=== PATIENT | female | born 1975 | race Caucasian/White ===

== ENCOUNTER → 2016-04-01 | Outpatient (REF) | payer OTHER ==
[2016-04-01 15:33] LABS: ANION GAP 9 MEQ/L (8-16); BLOOD UREA NITROGEN 13 MG/DL (7-18); CARBON DIOXIDE LEVEL 28 MEQ/L (21-32); CHLORIDE LEVEL 106 MEQ/L (98-107); CREATININE FOR GFR 0.84 MG/DL (0.55-1.02); GLOMERULAR FILTRATION RATE > 60.0 (>58); GLUCOSE, FASTING 85 MG/DL (70-105); POTASSIUM SERUM 4.5 MEQ/L (3.5-5.1); SODIUM LEVEL 143 MEQ/L (136-145)
[2016-04-01 15:34] LABS: ALBUMIN 4.1 GM/DL (3.2-5.2); ALBUMIN/GLOBULIN RATIO 1.41 (1.00-1.93); ALKALINE PHOSPHATASE 72 U/L (45-117); ALT/SGPT 13 U/L (12-78); AST/SGOT 9 U/L (15-37); BILIRUBIN,TOTAL 0.3 MG/DL (0.2-1.0); CALCIUM LEVEL 8.8 MG/DL (8.5-10.1)
== END ==
LOC: M SFHCLACO 12:06
PROVIDERS: ATTEND Physician Assistant
DX: E03.9 Hypothyroidism, unspecified (principal)

== ENCOUNTER 2016-10-07 14:24 | Inpatient (IN) | payer MEDICAID, OTHER ==
[~2016-10-07] VITALS: Ht 152.4 cm; Wt 55.3 kg
[2016-10-07] MEDS ORDERED: HALOPERIDOL 5 MG/ML VIAL (J1630) IM STA (14:40)
[2016-10-07] MEDS ORDERED: LORazepam 2 MG/ML VIAL (J2060) IM STA (14:40)
[2016-10-07] MEDS ORDERED: LAMO150T PO (14:43)
[2016-10-07] MEDS ORDERED: LEVO88TA3 PO (14:43)
[2016-10-07] MEDS ORDERED: GABA-282 PO (14:43)
[2016-10-07] MEDS ORDERED: DULO1CAP3 PO (14:43)
[2016-10-07] MEDS ORDERED: DULO1CAP2 PO ×2 (14:43→21:27)
[2016-10-07 15:15] LABS: MEAN CORPUSCULAR HEMOGLOBIN 25.8 pg (27.0-33.0); MEAN CORPUSCULAR HGB CONC 32.4 g/dl (32.0-36.5); MEAN CORPUSCULAR VOLUME 79.5 fl (80.0-96.0); RED CELL DISTRIBUTION WIDTH 14.5 % (11.5-14.5); WHITE BLOOD COUNT 13.1 K/mm3 (4.0-10.0)
[2016-10-07 15:46] LABS: ALBUMIN 4.3 GM/DL (3.2-5.2); ALBUMIN/GLOBULIN RATIO 1.34 (1.00-1.93); ALKALINE PHOSPHATASE 60 U/L (45-117); ALT/SGPT 14 U/L (12-78); ANION GAP 12 MEQ/L (8-16); AST/SGOT 11 U/L (15-37); BILIRUBIN,DIRECT 0.1 MG/DL (0.0-0.2); BILIRUBIN,TOTAL 0.5 MG/DL (0.2-1.0); BLOOD UREA NITROGEN 11 MG/DL (7-18); CALCIUM LEVEL 9.3 MG/DL (8.5-10.1); CARBON DIOXIDE LEVEL 21 MEQ/L (21-32); CHLORIDE LEVEL 104 MEQ/L (98-107); CREATININE FOR GFR 1.02 MG/DL (0.55-1.02); GLOMERULAR FILTRATION RATE > 60.0 (>58); GLUCOSE, FASTING 84 MG/DL (70-105); POTASSIUM SERUM 4.2 MEQ/L (3.5-5.1); SODIUM LEVEL 137 MEQ/L (136-145); TOTAL PROTEIN 7.5 GM/DL (6.4-8.2)
--- NOTE | 2016-10-07 17:54 | REP ---
CT BRAIN WITHOUT IV CONTRAST: CT brain is performed without IV contrast. Ventricles are normal in size and position. There is no midline shift. Bautista/white differentiation is well maintained. There is no acute hemorrhage. There is no extra-axial fluid collection. Bone window examination is unremarkable. IMPRESSION: Negative noncontrast CT brain. Signed by Chris Bautista MD 10/07/2016 07:29 P
--- NOTE | 2016-10-07 19:40 | ECGEPIP ---
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
[2016-10-07] MEDS ORDERED: MOM 30ML SUSPENSION UDC PO PRN (21:00)
[2016-10-07] MEDS ORDERED: traZODone 50 MG TAB PO PRN (21:00)
[2016-10-07] MEDS ORDERED: MAALOX 30 ML SUSP *UDC PO PRN (21:00)
[2016-10-07] MEDS ORDERED: BENA25TA10 PO (21:27)
[2016-10-07] MEDS ORDERED: IBUP40TA PO (21:27)
[2016-10-07] MEDS ORDERED: BUPR150T5 PO (21:29)
[2016-10-07] MEDS ORDERED: BUPR300T34 PO (21:29)
[2016-10-07 21:32] LABS: METHADONE URINE NEGATIVE (NEGATIVE)
[2016-10-08 01:00] VITALS: BP 107/70
[2016-10-08] MEDS ORDERED: GABAPENTIN 300 MG CAP PO PRN (02:45)
[2016-10-08] MEDS: LEVOTHYROXINE 88MCG TABLET (0.088 MG) PO SCH (07:08)
[2016-10-08] MEDS ORDERED: buPROPion **XL** TABLET 150MG (WELLBUTRIN XL) PO SCH (09:00)
[2016-10-08] MEDS: DULoxetine 30 MG CAP (CYMBALTA) PO SCH (09:56)
[2016-10-08] MEDS: buPROPion **XL** TABLET 150MG (WELLBUTRIN XL) PO SCH (09:56)
[2016-10-08] MEDS: lamoTRIgine 100MG TAB PO SCH (09:56)
--- NOTE | 2016-10-08 10:28 | HPEPDOC ---
Medical History and Physical Date of Admission Oct 07, 2016 at 20:51 History and Physical PCP: Sophia SERRATO ATTENDING: Dr. Alphonso Roa HPI: 40 yo F admitted to [facility] for brief psychotic disorder, being medically examined today. No acute medical complaints today. Patient states she takes gabapentin for panic attacks. She takes Lamictal for anxiety. Denies any fevers , chills, weakness, fatigue, MARSHALL, CP, SOB, cough, palpitations, abdominal pain, N /V/D or changes in bowel or bladder habits. PMHx: Panic attacks Anxiety Depression Hypothyroidism Headache PSHX: Denies SOCHX: Resides in: [facility] Marital Status: Kids: 3 Employment: Unemployed Tobacco use: Denies ETOH: One to 2 per week Illicit Drugs: Denies IV Drug Use: Denies Tattoos done unprofessionally: Denies FAMHX: Mother: , HIV Father: Alive, well Siblings: Alive, well Children: Alive, well Unexpected deaths due to medical reasons: None. ROS: As noted in HPI, otherwise 11pt ROS of systems reviewed and remarkable only for LMP unknown PE: GEN: 40 yo F, appears stated age. Well-nourished, well developed. No acute distress. Alert and oriented x 3. Pleasant, interactive. HEENT: Normocephalic, atraumatic. Pupils are equal, round, and reactive to light. Extraocular movements are intact. No nystagmus appreciated. Sclera are nonicteric. Conjunctiva without injection. Nose midline. Nasal turbinates without bogginess. EACs both patent BL. TMs both visualized and tay with good cone of light, no bulging or erythema. No facial asymmetry. Moist mucous membranes. Dentition fair. Pharynx pink and moist, no cobblestoning. Neck supple , trachea midline. No lymphadenopathy or thyromegaly appreciated. CHEST: Regular rate and rhythm, +S1, +S2 LUNGS: Clear to auscultation bilaterally. No wheezes, rales, or rhonchi. Breathing appears symmetric and easy. Patient is speaking in full sentences. No accessory muscle use. ABD: Round, soft, non-tender, non-distended. +Bowel sounds throughout. No rebound or guarding. No costovertebral angle tenderness. EXT: Pulses 2+ bilaterally dorsalis pedis and radial. No lower extremity edema appreciated. SKIN: [place], dry, warm. Capillary refill <2sec. No rashes. NEURO: Alert and oriented x 3. Cranial nerves III-XII are intact. No focal deficits appreciated. EK10/07/16 SINUS TACHYCARDIA NONSPECIFIC T-WAVE ABNORMALITY NO PRIORS CT had 10/07/[address] brain A&P: 40 yo F admitted to [facility] for brief psychotic disorder 1. Psych. Plan per Psychiatry. EKG on file. CT brain on file. Check UA/urine culture. 2. Hypothyroidism. Continue Synthroid 88 g daily. TSH is noted within normal limits. 3. Leukocytosis. Patient is afebrile. Asymptomatic. Recheck CBC in a.m. 4. Follow up with PCP on discharge. 5. Melvi HERNANDEZ present throughout exam. Vital Signs Vital Signs Date Time Temp Pulse Resp B/P (MAP) Pulse Ox O2 Delivery O2 Flow Rate FiO2 10/08/16 01:00 99.0 90 20 107/70 (82) 98 Room Air Laboratory Data Labs 24H Laboratory Tests 2 10/07/16 14:56: Anion Gap 12, Glomerular Filtration Rate > 60.0, Calcium Level 9.3, Aspartate Amino Transf (AST/SGOT) 11L, Alanine Aminotransferase (ALT/SGPT) 14, Alkaline Phosphatase 60, Total Bilirubin 0.5, Direct Bilirubin 0.1, Total Protein 7.5, Albumin 4.3, Albumin/Globulin Ratio 1.34, Thyroid Stimulating Hormone (TSH) 1.930, Salicylates Level < 1.7L, Acetaminophen Level < 2.0L, Ethyl Alcohol Level < 0.003 10/07/16 14:57: 10/07/16 20:33: Urine Amphetamines Screen NEGATIVE, Urine Benzodiazepines Screen NEGATIVE, Urine Opiates Screen NEGATIVE, Urine Methadone Screen NEGATIVE, Urine Barbiturates Screen NEGATIVE, Urine Phencyclidine Screen NEGATIVE, Urine Cocaine Metabolite Screen NEGATIVE, Urine Cannabinoids Screen NEGATIVE CBC/BMP Laboratory Tests 10/07/16 14:56 10/07/16 14:57 Red Blood Count 4.80, Mean Corpuscular Volume 79.5 L, Mean Corpuscular Hemoglobin 25.8 L, Mean Corpuscular Hemoglobin Concent 32.4, Red Cell Distribution Width 14.5 Home Medications Scheduled Bupropion HCl (Bupropion HCl Xl) 300 Mg Tab, 300 MG PO DAILY TAKES WITH THE 150 MG SR FOR 450 MG TOTAL Bupropion Hcl (Bupropion HCl Sr) 150 Mg Tab, 150 MG PO DAILY TAKES WITH THE 300 MG XL FOR 450 MG TOTAL Duloxetine Hcl (Duloxetine HCl) 60 Mg Cap, 60 MG PO DAILY TAKES WITH 30 MG FOR 90 MG TOTAL Duloxetine Hcl (Duloxetine HCl) 30 Mg Cap, 30 MG PO DAILY TAKES WITH 60 MG FOR 90MG TOTAL Lamotrigine (Lamotrigine) 150 Mg Tab, 150 MG PO DAILY Levothyroxine Sodium (Synthroid) 88 Mcg Tab, 88 MCG PO DAILY Scheduled PRN Diphenhydramine Hcl (Benadryl Allergy) 25 Mg Tab, 25 MG PO QHS PRN for SLEEP Gabapentin (Gabapentin) 300 Mg Cap, 300 MG PO TID PRN for PANIC ATTACKS Ibuprofen (Ibuprofen) 400 Mg Tab, 400 MG PO Q6H PRN for PAIN Allergies Coded Allergies: Penicillins (Unverified Allergy, Intermediate, RASH, 10/07/16) Elena Karimi Oct 08, 2016 10:28
[2016-10-08 18:00] VITALS: BP 132/76
--- NOTE | 2016-10-09 04:28 | MHHPE ---
DATE OF ADMISSION: 10/07/2016 CURRENT MEDICATIONS: - Wellbutrin XL 450 mg every morning - Cymbalta 90 mg every morning - Lamictal 150 mg every morning - gabapentin 300 mg three times a day as needed CHIEF COMPLAINT: Feeling overwhelmed. HISTORY OF PRESENT ILLNESS: This is a 40-year-old white female, , living with her and three children. Patient reports feeling confused today. Patient was at a local department store and panicked when she could not get a hold of her daughter. She reports having an "out of body experience." She has been feeling stressed recently. All three of her children are home from school. They fight constantly. Her 11-year-old son has autism. She does have a history of depression. Her appetite has been poor recently. She blames this on having a vegan diet. Recently, she switched to a vegetarian diet and her appetite has improved somewhat. Patient sleeps only with Benadryl. Her concentration is fine. Her level of energy is good. She enjoys spending time with her family. She does have a history of panic attacks. Her chest hurts. She has shortness of breath. She feels sweaty. She reports pins and needles in her hands. She is also a big worrier. She cannot relax. No history of obsessive-compulsive disorder (OCD) or posttraumatic stress disorder (PTSD). She does not avoid crowded situations. Patient has been on this high dose of Wellbutrin for at least 2 years now. She was getting her medications from a psychiatrist in [place] who stopped taking her insurance. Now she is getting her medications from her primary care physician. Patient still sees her therapist in [place], however. She has been seeing her therapist for approximately 5 years now. She claims to have a diagnosis of major depression and borderline personality disorder. PAST PSYCHIATRIC HISTORY: Patient states she has history of depression back to childhood when her mother abandoned the family when the patient was in fourth grade. She never got any treatment up until about 5 years ago. She was hospitalized briefly in ninth grade for 4 or 5 days, which she claims was a misunderstanding. MEDICAL HISTORY: She has hypothyroidism. SURGICAL HISTORY: None. ALLERGIES: PENICILLIN. LEGAL HISTORY: Negative. SUBSTANCE USE DISORDER: Patient denies. SOCIAL HISTORY: Patient was born and raised in [place]. Her mother was a heroin addict and abandoned the family. Patient was raised by her grandparents who eventually moved down to [place] when the patient was in tenth grade. Patient has 2 years of college. 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 She moved up to [place] in 2005 with her . FAMILY PSYCHIATRIC HISTORY: Patient's mother was a heroin addict. MENTAL STATUS EXAMINATION: Patient is alert, oriented and cooperative. She is highly anxious and mildly depressed. She is not currently suicidal. No current signs of psychosis. Not hearing voices. No paranoia or thought disorder. Patient fully oriented. Memory functions appear intact. Grooming and hygiene appear good. DIAGNOSES: 1. Major depression, recurrent, mild severity. 2. Panic anxiety disorder. 3. Generalized anxiety disorder. 4. Borderline personality disorder by history. PLAN: Admit 9.39. Reduce dose of Wellbutrin, which may be contributing to her anxiety symptoms and confusion. Involve in hospital milieu. Staff to reach out to family members for collateral contact.
[2016-10-09] MEDS: LEVOTHYROXINE 88MCG TABLET (0.088 MG) PO SCH (06:09)
[2016-10-09 06:25] VITALS: BP 92/58
[2016-10-09] MEDS: buPROPion **XL** TABLET 150MG (WELLBUTRIN XL) PO SCH (08:28)
[2016-10-09] MEDS: lamoTRIgine 100MG TAB PO SCH (08:28)
[2016-10-09] MEDS: DULoxetine 30 MG CAP (CYMBALTA) PO SCH (08:29)
--- NOTE | 2016-10-09 16:19 | IPN ---
DATE: 10/09/2016 VITAL SIGNS: Temperature is 98.9, pulse 89, respirations 20, blood pressure 92/58. CURRENT MEDICATIONS: - Cymbalta 90 mg daily - Lamictal 150 mg daily - Wellbutrin XL 150 mg every morning HISTORY OF PRESENT ILLNESS: The patient felt tearful today after her sister called from [place]. She still reports some mild depression and mild anxiety. No suicidal thoughts however. No episodes of mental confusion or panic attacks. No out of body experiences. She sleep better last night. Reducing the Wellbutrin seemed to reduce her anxiety level. Her came in to visit last night. This went well. She denies current psychotic symptoms. She has no other complaints. MENTAL STATUS EXAMINATION: The patient is alert, oriented and cooperative. She has good eye contact. Anxiety is mild. Depression is mild. She is not suicidal. She is not psychotic. Insight and judgment appears reasonably good. No signs of dangerousness. DIAGNOSIS: 1. Major depression recurrent, mild severity. 2. Panic anxiety disorder. 3. Generalized anxiety disorder. 4. Borderline personality disorder by history. PLAN: Continue current management involved in hospital Milieu. DISCHARGE PLAN: Contact family on Tuesday
[2016-10-09 18:00] VITALS: BP 101/60
[2016-10-10] MEDS: LEVOTHYROXINE 88MCG TABLET (0.088 MG) PO SCH (06:03)
[2016-10-10 06:16] VITALS: BP 102/53
[2016-10-10] MEDS: buPROPion **XL** TABLET 150MG (WELLBUTRIN XL) PO SCH (08:19)
[2016-10-10] MEDS: lamoTRIgine 100MG TAB PO SCH (08:19)
[2016-10-10] MEDS: DULoxetine 30 MG CAP (CYMBALTA) PO SCH (08:19)
[2016-10-10] MEDS: ACETAMINOPHEN TAB 650MG DOSE (2X325MG) PO PRN ×2 (15:17→21:22)
[2016-10-10 18:00] VITALS: BP 100/56
--- NOTE | 2016-10-10 21:36 | IPN ---
DATE: 10/10/2016 VITAL SIGNS: Temperature 98.0, pulse 84, respirations 18, blood pressure 102/53. CURRENT MEDICATION: - Cymbalta 90 mg per day - Lamictal 150 mg in the morning - Wellbutrin XL 150 mg in the morning HISTORY OF PRESENT ILLNESS: The patient reports her mood to be better today. She is less anxious. She got a good night sleep last night. She thinks the Wellbutrin dose was interfering with her sleep patterns. She feels more rested now. She reports that her is pleased with her progress. She has no other complaints. MENTAL STATUS EXAMINATION: Mood and affect are good. Anxiety is mild. No panic attacks. No current sign of depression. She is not suicidal. No signs of psychosis. Insight and judgment appear quite good today. DIAGNOSES: 1. Major depression, recurrent and mild severity. 2. Panic and anxiety disorder. 3. Generalized anxiety disorder. 4. Borderline personality disorder by history. PLAN: Staff to contact her regarding discharge planning.
[2016-10-11] MEDS: LEVOTHYROXINE 88MCG TABLET (0.088 MG) PO SCH (06:08)
[2016-10-11 06:38] VITALS: BP 97/53
[2016-10-11] MEDS: lamoTRIgine 100MG TAB PO SCH (08:26)
[2016-10-11] MEDS: buPROPion **XL** TABLET 150MG (WELLBUTRIN XL) PO SCH (08:26)
[2016-10-11] MEDS: DULoxetine 30 MG CAP (CYMBALTA) PO SCH (08:26)
[2016-10-11 09:39] LABS: MEAN CORPUSCULAR HEMOGLOBIN 25.5 pg (27.0-33.0); MEAN CORPUSCULAR HGB CONC 31.7 g/dl (32.0-36.5); MEAN CORPUSCULAR VOLUME 80.5 fl (80.0-96.0); RED CELL DISTRIBUTION WIDTH 14.4 % (11.5-14.5); WHITE BLOOD COUNT 5.2 K/mm3 (4.0-10.0)
--- NOTE | 2016-10-11 18:04 | MHDS ---
DATE OF ADMISSION: 10/07/2016 DATE OF DISCHARGE: 10/11/2016 VITAL SIGNS: Temperature 98.1, pulse 80, respirations 16, blood pressure 95/53. LABS: CBC and differential showed low MCH at 25.5, MCHC was low at 31.7. Chem survey was normal except for low AST at 11. Toxicology screen was negative. DISCHARGE MEDICATIONS: - Cymbalta 90 mg per day - Lamictal 100 mg every morning - Wellbutrin XL 150 mg every morning - gabapentin 300 mg three times a day as needed taken rarely - trazodone 50 mg at bedtime as needed DISCHARGE DIAGNOSES: 1. Major depression recurrent, mild severity. 2. Panic anxiety disorder. 3. Generalized anxiety disorder. 4. Borderline personality disorder. CHIEF COMPLAINT: Anxiety and out of body experiences. HISTORY OF PRESENT ILLNESS: This is a 40-year-old White female , living with her and three children. Patient had been feeling confused day of admission . She was feeling disoriented and unable to do simple things such as push a shopping cart at the local department store. She has been more anxious recently with panic attacks. She has been feeling mildly depressed as well. She been stressed out by her young children. They are home from school. Her appetite has been poor recently. She had been complaining of lack of energy while eating a vegan diet. Recently she started a vegetarian diet and has a better appetite. She sleeps poorly at night which then makes her feel fatigued the next day. PROGRESS IN THE UNIT: Patient appeared to be over medicated on her high dose of Wellbutrin 450 mg every morning. This is likely aggravating her anxiety, making her panic attacks worse and causing the out of the body experiences. She was reduced quickly down to Wellbutrin 150 mg by mouth every morning. Almost immediately she felt better. She was less anxious. Her mood was good. She denied any depression. She was sleeping a lot better at night without needing sleeping medication. She was active on the unit. She had no further panic attacks or out of body experiences. Her was in to visit and he confirmed that the patient was back to her baseline and felt comfortable with her returning home. Patient does not have a local psychiatrist. Staff will help to provider her some names. She does have a therapist in the [facility] however that she will followup with. MENTAL STATUS EXAM: Mood and affect appears quite good at time of discharge. Anxiety was minimal and there are no signs of depression. She was not suicidal. She was nonpsychotic, not hearing voices, no paranoid or thought disorder. No signs of organicity. No signs of impulsivity. Memory function is intact. Patient appears to have been over-medicated with a high dose Wellbutrin given her small size and stature. PLAN: Discharge back to the community to her family with followup with her therapist and her psychiatrist.
== END 2016-10-11 12:50 | disposition home or self-care (01) | DRG 751 ==
LOC: M ED 14:24 → M ED INP 20:51 → M PSY 10-08 00:58
PROVIDERS: ADMIT Psychiatry & Neurology Psychiatry; ATTEND Psychiatry & Neurology Psychiatry
DX: F33.0 Major depressive disorder, recurrent, mild (principal); E03.9 Hypothyroidism, unspecified; F41.1 Generalized anxiety disorder; F41.0 Panic disorder [episodic paroxysmal anxiety]; F60.3 Borderline personality disorder; D72.829 Elevated white blood cell count, unspecified; Z79.899 Other long term (current) drug therapy; Z88.0 Allergy status to penicillin

== ENCOUNTER → 2017-08-16 | Outpatient (REF) | payer OTHER, MEDICAID ==
[2017-08-16 15:19] LABS: ALBUMIN 3.8 GM/DL (3.2-5.2); ALBUMIN/GLOBULIN RATIO 1.19 (1.00-1.93); ALKALINE PHOSPHATASE 53 U/L (45-117); ALT/SGPT 17 U/L (12-78); ANION GAP 7 MEQ/L (8-16); AST/SGOT 17 U/L (7-37); BILIRUBIN,TOTAL 0.3 MG/DL (0.2-1.0); BLOOD UREA NITROGEN 6 MG/DL (7-18); CALCIUM LEVEL 8.5 MG/DL (8.5-10.1); CARBON DIOXIDE LEVEL 28 MEQ/L (21-32); CHLORIDE LEVEL 105 MEQ/L (98-107); CREATININE FOR GFR 1.02 MG/DL (0.55-1.30); GLOMERULAR FILTRATION RATE > 60.0 (>58); GLUCOSE, FASTING 84 MG/DL (70-100); POTASSIUM SERUM 4.2 MEQ/L (3.5-5.1); SODIUM LEVEL 140 MEQ/L (136-145)
== END ==
LOC: M SFHCLACO 09:23
DX: M25.50 Pain in unspecified joint (principal); E03.9 Hypothyroidism, unspecified

== ENCOUNTER → 2017-11-10 | Outpatient (REF) | payer OTHER, MEDICAID ==
[2017-11-10 16:30] LABS: HEMATOCRIT 34.2 % (36.0-47.0); HEMOGLOBIN 10.2 g/dl (12.0-15.5); MEAN CORPUSCULAR HGB CONC 29.8 g/dl (32.0-36.5); MEAN CORPUSCULAR VOLUME 70.5 fl (80.0-96.0); PLATELET COUNT, AUTOMATED 645 10^3/uL (150-450); RED BLOOD COUNT 4.85 10^6/uL (4.00-5.40); RED CELL DISTRIBUTION WIDTH 18.4 % (11.5-14.5)
[2017-11-10 17:14] LABS: FERRITIN 3 NG/ML (8-252); IRON (FE) 20 UG/DL (50-170); PERCENT SATURATION 4.4 % (13.2-45.0); TOTAL IRON BINDING CAPACITY 458 UG/DL (250-450)
== END ==
LOC: M SFHCLACO 13:16
DX: F50.89 Other specified eating disorder (principal); E03.9 Hypothyroidism, unspecified
CPT/HCPCS: 83550

== ENCOUNTER → 2018-02-21 | Outpatient (REF) | payer OTHER, MEDICAID ==
[2018-02-21 15:58] LABS: HEMATOCRIT 35.5 % (36.0-47.0); HEMOGLOBIN 10.8 g/dl (12.0-15.5); MEAN CORPUSCULAR HEMOGLOBIN 22.4 pg (27.0-33.0); MEAN CORPUSCULAR HGB CONC 30.4 g/dl (32.0-36.5); MEAN CORPUSCULAR VOLUME 73.5 fl (80.0-96.0); PLATELET COUNT, AUTOMATED 501 10^3/uL (150-450); RED BLOOD COUNT 4.83 10^6/uL (4.00-5.40); RED CELL DISTRIBUTION WIDTH 17.2 % (11.5-14.5); WHITE BLOOD COUNT 8.9 10^3/uL (4.0-10.0)
[2018-02-21 16:00] LABS: FERRITIN 3 NG/ML (8-252); IRON (FE) 21 UG/DL (50-170); TOTAL IRON BINDING CAPACITY 418 UG/DL (250-450)
== END ==
LOC: M SFHCLACO 15:08
DX: D50.8 Other iron deficiency anemias (principal)
CPT/HCPCS: 83550

== ENCOUNTER 2018-04-08 05:33 | Emergency (ER) | payer MEDICAID, OTHER ==
[~2018-04-08] VITALS: Ht 149.9 cm; Wt 68.2 kg
[~2018-04-08 05:33] MED LIST: BENA25TA10 PO; BUPR150T5 PO; BUPR300T34 PO; DULO1CAP2 PO; DULO1CAP3 PO; GABA-843 PO; IBUP40TA PO; LAMO150T2 PO; LEVO88TA3 PO
[2018-04-08] MEDS ORDERED: REXU1TAB3 PO (05:38)
[2018-04-08] MEDS ORDERED: LINZ145C PO (05:38)
[2018-04-08] MEDS ORDERED: GABA-843 PO (05:38)
[2018-04-08 06:50] LABS: BASO # 0.1 10^3/uL (0.0-0.2); BASO % 0.8 % (0.0-1.0); EOS # 0.2 10^3/uL (0.0-0.50); EOS % 2.9 % (0.0-3.0); HEMATOCRIT 36.3 % (36.0-47.0); HEMOGLOBIN 10.9 g/dl (12.0-15.5); LYMPH # 1.7 10^3/uL (1.5-4.5); LYMPH % 26.3 % (24.0-44.0); MEAN CORPUSCULAR HEMOGLOBIN 22.1 pg (27.0-33.0); MEAN CORPUSCULAR VOLUME 73.6 fl (80.0-96.0); MONO # 0.7 10^3/uL (0.0-0.8); NEUTROPHILS # 3.9 10^3/uL (1.8-7.7); NEUTROPHILS % 59.5 % (36.0-66.0); PLATELET COUNT, AUTOMATED 431 10^3/uL (150-450); RED BLOOD COUNT 4.93 10^6/uL (4.00-5.40); WHITE BLOOD COUNT 6.5 10^3/uL (4.0-10.0)
[2018-04-08 07:18] LABS: ALBUMIN 3.7 GM/DL (3.2-5.2); ALT/SGPT 17 U/L (12-78); BILIRUBIN,DIRECT < 0.1 MG/DL (0.0-0.2); BILIRUBIN,TOTAL 0.2 MG/DL (0.2-1.0); LIPASE 289 U/L (73-393); TOTAL PROTEIN 6.8 GM/DL (6.4-8.2)
[2018-04-08 07:20] LABS: BLOOD UREA NITROGEN 11 MG/DL (7-18); CALCIUM LEVEL 8.5 MG/DL (8.5-10.1); CARBON DIOXIDE LEVEL 27 MEQ/L (21-32); CHLORIDE LEVEL 104 MEQ/L (98-107); CPK CREATINE PHOSPHOKINASE 106 U/L (26-192); CREATININE FOR GFR 0.87 MG/DL (0.55-1.30); GLOMERULAR FILTRATION RATE > 60.0 (>58); GLUCOSE, FASTING 84 MG/DL (70-100); MB/CK RELATIVE INDEX 1.32 (< OR =4); POTASSIUM SERUM 4.3 MEQ/L (3.5-5.1); SODIUM LEVEL 138 MEQ/L (136-145); TROPONIN I < 0.02 NG/ML (< 0.10)
[2018-04-08] MEDS ORDERED: KETOROLAC 30 MG/ML VIAL (J1885) IV ONE (07:30)
[2018-04-08] MEDS ORDERED: GI COCKTAIL 50ML BTL(HYOSCYAMINE/MAALOX/LIDOCAINE VISCOUS)(1:3:1) PO ONE (07:30)
--- NOTE | 2018-04-08 08:06 | REP ---
Chest x-ray: Two views. History: Chest pain . Comparison study: No comparison study . Findings: The lungs are well inflated and free of infiltrate. The pleural angles are sharp. The heart size is normal. Pulmonary vasculature is not increased. No significant bony abnormality is seen. EKG monitoring electrodes overlie the chest. Impression: Negative chest x-ray. Electronically Signed by Gael Graham MD 04/08/2018 07:57 A
--- NOTE | 2018-04-08 08:08 | ECGEPIP ---
Stationary ECG Study [facility] - ED Test Date: 2018-04-08 Pat Name: STEVEN CHRISTY Department: Room: - Gender: F Hub Borer: [place] : 1975 Requested By: MIGUEL A Crowell Order Number: [id number] Reading MD: Genie Carrion Measurements Intervals [place] Rate: 72 P: 22 [place]: 163 QRS: 26 QRSD: 94 T: 48 QT: 381 QTc: 418 Interpretive Statements SINUS RHYTHM PRWP NSTTW ABNORMALITY LOW VOLTAGE LIMB DECREASED RATE 10/07/16 Electronically Signed On 04-08-2018 8:08:11 EST by Genie Carrion
[2018-04-08 10:48] LABS: CPK CREATINE PHOSPHOKINASE 103 U/L (26-192); MB/CK RELATIVE INDEX 0.97 (< OR =4); TROPONIN I < 0.02 NG/ML (< 0.10)
[2018-04-08] MEDS ORDERED: ROBA500T PO (10:51)
[2018-04-08] MEDS ORDERED: NAPR-50 PO (10:51)
[2018-04-08] MEDS ORDERED: FERR28TA PO (10:53)
[2018-04-08 11:01] VITALS: BP 121/77
--- NOTE | 2018-04-08 12:59 | ECGEPIP ---
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
== END 2018-04-08 11:03 | disposition home or self-care (01) ==
LOC: M ED 05:33
DX: M94.0 Chondrocostal junction syndrome [Tietze] (principal); D50.9 Iron deficiency anemia, unspecified; F41.9 Anxiety disorder, unspecified; H92.01 Otalgia, right ear; K58.1 Irritable bowel syndrome with constipation; F32.9 Major depressive disorder, single episode, unspecified; E03.9 Hypothyroidism, unspecified; Z88.0 Allergy status to penicillin; Z79.899 Other long term (current) drug therapy
CPT/HCPCS: 36415; 71046; 80048; 80076; 82550; 82553; 83690; 85025; 93005; 93041; 94760; 96374; 99285; J1885

== ENCOUNTER 2018-07-21 20:16 | Emergency (ER) | payer MEDICAID, OTHER ==
[~2018-07-21] VITALS: Ht 149.9 cm; Wt 67.3 kg
[~2018-07-21 20:16] MED LIST changes: +FERR28TA PO; +LINZ145C PO; +NAPR-837 PO; +REXU1TAB3 PO; +ROBA500T PO
[2018-07-21] MEDS ORDERED: METF500T13 PO (22:18)
[2018-07-21] MEDS ORDERED: NS 1,000 ML IV ONE (23:00)
--- NOTE | 2018-07-22 | REPVR ---
EXAM: US Pelvis Complete, Transabdominal and US Pelvis, Transvaginal EXAM DATE/TIME: 07/21/2018 11:21 PM CLINICAL HISTORY: 42 years old, female; Pelvic pain; Additional info: Right adnexal tenderness TECHNIQUE: Imaging protocol: Real-time transabdominal and transvaginal pelvic ultrasound (complete) with image documentation. Transvaginal imaging was used for better evaluation of the endometrium and adnexa. COMPARISON: No relevant prior studies available. FINDINGS: Uterus/cervix: Uterus measures 8.9 x 5.4 x 5.6 cm. Uterus is retroverted. Endometrial stripe measures 1.9 cm in thickness. No masses. Right adnexa: Right ovary measures 3.4 x 2.4 x 3.4 cm. Anechoic cyst in the right ovary measuring 1.7 x 2.0 x 1.6 cm. Normal vascular flow. No masses. Left adnexa: Left ovary measures 3.3 x 1.9 x 2.2 cm. Normal vascular flow. No masses. Free fluid: No free fluid. Bladder: Normal. IMPRESSION: 1. Cyst in the right ovary. No follow-up is necessary. 2. Unremarkable uterus and left ovary. Electronically signed by: Sheri Em On 07/21/2018 23:59:47 PM
[2018-07-22 00:13] LABS: ALBUMIN 4.1 GM/DL (3.2-5.2); ALT/SGPT 15 U/L (12-78); BASO # 0.1 10^3/uL (0.0-0.2); BASO % 0.8 % (0.0-1.0); BILIRUBIN,DIRECT < 0.1 MG/DL (0.0-0.2); BILIRUBIN,TOTAL 0.3 MG/DL (0.2-1.0); BLOOD UREA NITROGEN 8 MG/DL (7-18); CALCIUM LEVEL 8.5 MG/DL (8.5-10.1); CARBON DIOXIDE LEVEL 26 MEQ/L (21-32); CHLORIDE LEVEL 107 MEQ/L (98-107); CREATININE FOR GFR 0.96 MG/DL (0.55-1.30); EOS # 0.2 10^3/uL (0.0-0.50); EOS % 2.5 % (0.0-3.0); GLOMERULAR FILTRATION RATE > 60.0 (>58); GLUCOSE, FASTING 90 MG/DL (70-100); HEMOGLOBIN 12.9 g/dl (12.0-15.5); LIPASE 261 U/L (73-393); LYMPH # 2.6 10^3/uL (1.5-4.5); LYMPH % 34.6 % (24.0-44.0); MEAN CORPUSCULAR HEMOGLOBIN 25.7 pg (27.0-33.0); MEAN CORPUSCULAR HGB CONC 32.3 g/dl (32.0-36.5); MEAN CORPUSCULAR VOLUME 79.7 fl (80.0-96.0); MONO # 0.6 10^3/uL (0.0-0.8); MONO % 8.4 % (0.0-5.0); NEUTROPHILS # 4.1 10^3/uL (1.8-7.7); NEUTROPHILS % 53.6 % (36.0-66.0); PLATELET COUNT, AUTOMATED 365 10^3/uL (150-450); POTASSIUM SERUM 4.1 MEQ/L (3.5-5.1); RED BLOOD COUNT 5.02 10^6/uL (4.00-5.40); SODIUM LEVEL 141 MEQ/L (136-145); TOTAL PROTEIN 7.1 GM/DL (6.4-8.2); WHITE BLOOD COUNT 7.6 10^3/uL (4.0-10.0)
[2018-07-22 00:14] LABS: HCG, SERUM QUALITATIVE NEGATIVE (NEGATIVE)
[2018-07-22 00:35] LABS: CHLAMYDIA DNA AMPLIFICATION NEGATIVE (NEGATIVE); GC DNA AMPLIFICATION NEGATIVE (NEGATIVE)
[2018-07-22] MEDS ORDERED: NAPR-837 PO (01:09)
[2018-07-22 01:15] VITALS: BP 104/69
[2018-07-22] MEDS ORDERED: KETOROLAC 30 MG/ML VIAL (J1885) IV ONE (01:15)
== END 2018-07-22 01:37 | disposition home or self-care (01) ==
LOC: M ED 20:16
DX: N83.291 Other ovarian cyst, right side (principal); Z79.899 Other long term (current) drug therapy; Z88.0 Allergy status to penicillin
CPT/HCPCS: 36415; 76830; 76856; 80048; 80076; 81001; 83690; 84703; 85025; 87086; 87210; 87491; 87591; 93976; 96360; 96361; 96374; 99284; J1885

== ENCOUNTER 2018-11-12 19:26 | Emergency (ER) | payer OTHER ==
[~2018-11-12] VITALS: Ht 149.9 cm; Wt 65.9 kg
[~2018-11-12 19:26] MED LIST changes: -BUPR300T34 PO; +BUPR300T92 PO; -DULO1CAP2 PO; -DULO1CAP3 PO; +DULO1CAP5 PO; +DULO1CAP6 PO; -LAMO150T2 PO; +LAMO150T3 PO; +METF500T13 PO
[2018-11-12 19:54] LABS: BASO # 0.1 10^3/uL (0.0-0.2); BASO % 0.9 % (0.0-1.0); EOS # 0.3 10^3/uL (0.0-0.50); EOS % 2.7 % (0.0-3.0); HEMATOCRIT 43.4 % (36.0-47.0); HEMOGLOBIN 13.9 g/dl (12.0-15.5); LYMPH # 2.2 10^3/uL (1.5-4.5); LYMPH % 23.8 % (24.0-44.0); MEAN CORPUSCULAR HEMOGLOBIN 27.5 pg (27.0-33.0); MEAN CORPUSCULAR VOLUME 85.9 fl (80.0-96.0); MONO # 0.8 10^3/uL (0.0-0.8); MONO % 8.3 % (0.0-5.0); NEUTROPHILS # 5.8 10^3/uL (1.8-7.7); NEUTROPHILS % 63.6 % (36.0-66.0); PLATELET COUNT, AUTOMATED 453 10^3/uL (150-450); RED BLOOD COUNT 5.05 10^6/uL (4.00-5.40); WHITE BLOOD COUNT 9.1 10^3/uL (4.0-10.0)
[2018-11-12] MEDS ORDERED: NS 1,000 ML IV ONE (20:00)
[2018-11-12] MEDS ORDERED: KETOROLAC 30 MG/ML VIAL (J1885) IV ONE (20:00)
[2018-11-12 20:20] LABS: ALBUMIN 4.1 GM/DL (3.2-5.2); ALT/SGPT 17 U/L (12-78); BILIRUBIN,DIRECT 0.1 MG/DL (0.0-0.2); BILIRUBIN,TOTAL 0.3 MG/DL (0.2-1.0); BLOOD UREA NITROGEN 8 MG/DL (7-18); CARBON DIOXIDE LEVEL 30 MEQ/L (21-32); CHLORIDE LEVEL 104 MEQ/L (98-107); CREATININE FOR GFR 0.98 MG/DL (0.55-1.30); GLOMERULAR FILTRATION RATE > 60.0 (>58); GLUCOSE, FASTING 98 MG/DL (70-100); LIPASE 206 U/L (73-393); POTASSIUM SERUM 4.4 MEQ/L (3.5-5.1); SODIUM LEVEL 140 MEQ/L (136-145); TOTAL PROTEIN 7.5 GM/DL (6.4-8.2)
[2018-11-12] MEDS ORDERED: PANTOPRAZOLE 40MG INJ (PROTONIX) (C9113) IV ONE (21:00)
[2018-11-12] MEDS ORDERED: SUCRALFATE 1 GM TAB PO ONE (23:00)
[2018-11-12] MEDS ORDERED: PROT1TAB2 PO (23:01)
[2018-11-12] MEDS ORDERED: CARA1TAB6 PO (23:01)
[2018-11-12 23:06] VITALS: BP 115/72
--- NOTE | 2018-11-12 23:24 | REPVR ---
EXAM: US Abdomen Limited, Right Upper Quadrant EXAM DATE/TIME: 11/12/2018 10:38 PM CLINICAL HISTORY: 42 years old, female; Abdominal pain; Generalized; Additional info: Ruq pain TECHNIQUE: Imaging protocol: Real-time ultrasound of the abdomen with image documentation. Examination was focused on the right upper quadrant. COMPARISON: No relevant prior studies available. FINDINGS: Liver: No discrete masses. Gallbladder: No sizable gallstones. There is no gallbladder wall thickening. Common bile duct: Common bile duct measures approximately 0.5 cm. Pancreas: Visualized pancreas is grossly unremarkable. Right kidney: Right kidney measures 9.0 x 4.2 x 5.2 cm. No hydronephrosis. IMPRESSION: No sonographic evidence of cholelithiasis or significant gallbladder wall thickening. Electronically signed by: Miguel Angel Mcdermott On 11/12/2018 23:24:08 PM
== END 2018-11-12 23:14 | disposition home or self-care (01) ==
LOC: M ED 19:26
DX: K29.70 Gastritis, unspecified, without bleeding (principal); F10.20 Alcohol dependence, uncomplicated; E03.9 Hypothyroidism, unspecified; F33.9 Major depressive disorder, recurrent, unspecified; F41.9 Anxiety disorder, unspecified; Z79.899 Other long term (current) drug therapy; Z79.890 Hormone replacement therapy; Z79.84 Long term (current) use of oral hypoglycemic drugs; Z88.0 Allergy status to penicillin
CPT/HCPCS: 76705; 80048; 80076; 81001; 83690; 84702; 85025; 87086; 96361; 96374; 96375; 99284; C9113; J1885

== ENCOUNTER 2019-08-30 19:11 | Emergency (ER) | payer MEDICAID, OTHER ==
[~2019-08-30] VITALS: Ht 152.4 cm; Wt 70.1 kg
[~2019-08-30 19:11] MED LIST changes: +CARA1TAB6 PO; +GABA-282 PO; -GABA-843 PO; +IBUP1TAB5 PO; -IBUP40TA PO; +PROT1TAB2 PO
[2019-08-30] MEDS ORDERED: CLON0.5T17 PO (19:20)
[2019-08-30 20:37] LABS: BASO # 0.1 10^3/uL (0.0-0.2); BASO % 0.6 % (0.0-1.0); EOS # 0.3 10^3/uL (0.0-0.5); EOS % 2.6 % (0.0-3.0); HEMATOCRIT 40.9 % (36.0-47.0); HEMOGLOBIN 13.2 g/dl (12.0-15.5); LYMPH # 2.1 10^3/uL (1.5-5.0); LYMPH % 21.5 % (24.0-44.0); MEAN CORPUSCULAR HEMOGLOBIN 26.5 pg (27.0-33.0); MEAN CORPUSCULAR HGB CONC 32.3 g/dl (32.0-36.5); MONO # 0.9 10^3/uL (0.0-0.8); MONO % 8.8 % (0.0-5.0); NEUTROPHILS # 6.4 10^3/uL (1.5-8.5); NEUTROPHILS % 66.2 % (36.0-66.0); PLATELET COUNT, AUTOMATED 392 10^3/uL (150-450); RED BLOOD COUNT 4.99 10^6/uL (4.00-5.40); WHITE BLOOD COUNT 9.7 10^3/uL (4.0-10.0)
[2019-08-30] MEDS ORDERED: SUCRALFATE 1 GM TAB PO ONE (20:45)
[2019-08-30] MEDS ORDERED: GI COCKTAIL 50ML BTL(HYOSCYAMINE/MAALOX/LIDOCAINE VISCOUS)(1:3:1) PO ONE (20:45)
[2019-08-30] MEDS ORDERED: PANTOPRAZOLE 40MG VIAL (C9113 PER 1) IV ONE (20:45)
[2019-08-30 21:08] LABS: ALBUMIN 4.1 GM/DL (3.2-5.2); ALT/SGPT 21 U/L (12-78); BILIRUBIN,DIRECT 0.1 MG/DL (0.0-0.2); BILIRUBIN,TOTAL 0.3 MG/DL (0.2-1.0); CK-MB VALUE MASS < 1.0 NG/ML (<3.6); CPK CREATINE PHOSPHOKINASE 62 U/L (26-192); LIPASE 145 U/L (73-393); MB/CK RELATIVE INDEX 1.61 (< OR =4); TOTAL PROTEIN 7.5 GM/DL (6.4-8.2); TROPONIN I < 0.02 NG/ML (< 0.10)
[2019-08-30] MEDS ORDERED: KETOROLAC 30 MG/ML 1ML VIAL IV ONE (21:30)
--- NOTE | 2019-08-30 22:36 | REPVR ---
PROCEDURE INFORMATION: Exam: US Abdomen Limited, Right Upper Quadrant Exam date and time: 08/30/2019 10:17 PM Age: 43 years old Clinical indication: Abdominal pain; Acute; Additional info: Epigastric pain TECHNIQUE: Imaging protocol: Real-time ultrasound of the abdomen with image documentation. Examination was focused on the right upper quadrant. COMPARISON: GALLBLADDER US 11/12/2018 10:23 PM FINDINGS: Liver: There are small echogenic foci in the liver measuring up to 10 mm which may be a small hemangiomata but are nonspecific. Remainder of the liver is unremarkable. These are not documented on the previous right upper quadrant ultrasound. Gallbladder: Small echogenic foci in the gallbladder wall may be small adherent stones or small polyps. No other large calculi, wall thickening, or pericholecystic fluid. Common bile duct: No biliary duct dilation. Pancreas: Visualized pancreas is unremarkable. Right kidney: Normal. No mass. No hydronephrosis. IMPRESSION: 1. Possible small gallbladder polyps or adherent calculi. No signs of cholecystitis or biliary duct dilation. 2. Small echogenic foci in the liver may be small hemangiomas but are nonspecific. Electronically signed by: Gustavo Tai On 08/30/2019 22:35:59 PM
[2019-08-30] MEDS ORDERED: ISOVUE-370 76% 100ML VIAL As Ordered ONE (22:56)
[2019-08-30] MEDS ORDERED: MORPHINE 4 MG/ML 1ML VIAL/SYRINGE (J2270) IV ONE (23:00)
--- NOTE | 2019-08-30 23:28 | REPVR ---
PROCEDURE INFORMATION: Exam: CT Abdomen And Pelvis With Contrast Exam date and time: 08/30/2019 10:51 PM Age: 43 years old Clinical indication: Abdominal pain; Generalized; Additional info: Generalized/epigastric abd pain, nv TECHNIQUE: Imaging protocol: Computed tomography of the abdomen and pelvis with intravenous contrast. Radiation optimization: All CT scans at this facility use at least one of these dose optimization techniques: automated exposure control; mA and/or kV adjustment per patient size (includes targeted exams where dose is matched to clinical indication); or iterative reconstruction. Contrast material: ISO; Contrast volume: 100 ml; Contrast route: AC; COMPARISON: US PELVIC NON-OB COMPLETE 07/21/2018 11:10 PM FINDINGS: Liver: The dome of the liver is not imaged in its entirety. There is a 2.0 cm lobulated low-density nodule in the dome of the liver which is also incompletely imaged. Remainder of the liver is unremarkable. Gallbladder and bile ducts: Normal. No calcified stones. No ductal dilation. Pancreas: Normal. No ductal dilation. Spleen: Normal. No splenomegaly. Adrenals: Normal. No mass. Kidneys and ureters: Normal. No hydronephrosis. Stomach and bowel: Mild intraluminal fluid and mucosal enhancement are noted in the small bowel. No wall thickening or other inflammatory changes. No bowel obstruction. The stomach and colon are unremarkable. Appendix: No evidence of appendicitis. Intraperitoneal space: Unremarkable. No free air. No significant fluid collection. Vasculature: Unremarkable. No abdominal aortic aneurysm. Lymph nodes: Unremarkable. No enlarged lymph nodes. Bladder: There is plaque-like wall thickening in the anterior urinary bladder, measuring up to 9 mm thick. Reproductive: There is a 2.2 cm physiologic cyst in the right ovary. Uterus and adnexa are otherwise unremarkable. No hydrosalpinx. Bones/joints: Unremarkable. No acute fracture. Soft tissues: Unremarkable. IMPRESSION: 1. Mild mucosal enhancement and intraluminal fluid in the small bowel is nonspecific but may indicate a viral enteritis. No obstruction. 2. Plaque-like wall thickening in the anterior urinary bladder may indicate cystitis. Bladder neoplasm could also have this appearance however. Follow-up is recommended. 3. Non-specific nodule in the dome of the liver may be a hemangioma but is incompletely imaged. Electronically signed by: Gustavo Tai On 08/30/2019 23:28:21 PM
[2019-08-30] MEDS ORDERED: MACR100C43 PO (23:51)
[2019-08-30] MEDS ORDERED: DICY10CA13 PO (23:51)
[2019-08-31] MEDS ORDERED: DICYCLOMINE 10 MG CAP PO ONE
[2019-08-31] MEDS ORDERED: NITROFURANTOIN (MACROBID) 100 MG CAP PO ONE
[2019-08-31 00:16] VITALS: BP 112/82
--- NOTE | 2019-08-31 13:54 | ED PDOC ---
Post-Departure Follow-Up ct abd/p faxed to Drs. Thomas/Dahlia and Concha Machuca for fu Ally Joshua MD Aug 31, 2019 13:54
--- NOTE | 2019-08-31 21:04 | ECGEPIP ---
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
== END 2019-08-31 00:17 | disposition home or self-care (01) ==
LOC: M ED 19:11
DX: N39.0 Urinary tract infection, site not specified (principal); K52.9 Noninfective gastroenteritis and colitis, unspecified; E03.9 Hypothyroidism, unspecified; F41.9 Anxiety disorder, unspecified; Z88.0 Allergy status to penicillin
CPT/HCPCS: 36415; 74177; 76705; 80047; 80076; 81001; 82550; 82553; 83690; 85025; 87086; 93005; 96374; 96375; 99284; C9113; J1885; Q9967

== ENCOUNTER → 2019-09-04 | Outpatient (REF) | payer OTHER, MEDICAID ==
[~2019-09-04] MED LIST changes: +CLON0.5T17 PO; +DICY10CA13 PO; -GABA-282 PO; +GABA-843 PO; -IBUP1TAB5 PO; +IBUP40TA PO; +MACR100C43 PO
== END ==
LOC: M SFHCLACO 16:08
PROVIDERS: ATTEND Physician Assistant
DX: E03.9 Hypothyroidism, unspecified (principal)

== ENCOUNTER → 2020-01-02 | Outpatient (CLI) | payer OTHER, MEDICAID ==
--- NOTE | 2020-01-07 16:30 | REP ---
T-SPINE SERIES: 3-VIEWS HISTORY: Acute bilateral thoracic back pain. FINDINGS: Thoracic vertebral body heights are preserved. There is mild S-shaped thoracic curvature. Alignment is otherwise normal. Minimal discogenic spurs are seen in the mid thoracic spine and in the lower thoracic spine. There is degenerative disc disease noted at C5-6 and C6-7 in the cervical spine on swimmers view. No paravertebral soft tissue mass is seen. No bony destructive lesion is seen. IMPRESSION: Minimal S-shaped curvature. Mild degenerative disc changes. No acute abnormality. MTDD
--- NOTE | 2020-01-07 16:30 | REP ---
LUMBAR SPINE SERIES: 5-VIEWS HISTORY: Acute bilateral back pain. FINDINGS: There is a dextroconvex curvature on the AP view. Lumbar vertebral body heights are preserved. Alignment is otherwise normal. Disc spaces are maintained. There is discogenic spurring anteriorly at L3-4 and L2-3, mild in degree. The pedicles and posterior elements are intact. Osteoarthritic facet hypertrophy is noted bilaterally at L5-S1, mild in degree. Psoas margins are symmetric. The sacrum and SI joints are intact. IMPRESSION: Mild dextroconvex curvature. Mild degenerative spondylosis. No acute abnormality MTDD
== END ==
LOC: M ADAMS 12:29
PROVIDERS: ATTEND Physician Assistant
DX: M47.896 Other spondylosis, lumbar region (principal); M54.6 Pain in thoracic spine

== ENCOUNTER → 2020-01-02 | Outpatient (REF) | payer OTHER, MEDICAID ==
[2020-01-02 17:10] LABS: HEMATOCRIT 43.5 % (36.0-47.0); HEMOGLOBIN 13.5 g/dl (12.0-15.5); MEAN CORPUSCULAR HEMOGLOBIN 25.8 pg (27.0-33.0); MEAN CORPUSCULAR VOLUME 83.2 fl (80.0-96.0); PLATELET COUNT, AUTOMATED 470 10^3/uL (150-450); RED BLOOD COUNT 5.23 10^6/uL (4.00-5.40)
[2020-01-02 17:11] LABS: ALBUMIN 3.7 GM/DL (3.2-5.2); ALT/SGPT 22 U/L (12-78); BILIRUBIN,TOTAL 0.2 MG/DL (0.2-1.0); BLOOD UREA NITROGEN 8 MG/DL (7-18); C REACTIVE PROTEIN QUANTITATIV 0.44 MG/DL (0.00-0.30); CALCIUM LEVEL 9.6 MG/DL (8.5-10.1); CARBON DIOXIDE LEVEL 32 MEQ/L (21-32); CHLORIDE LEVEL 103 MEQ/L (98-107); CREATININE FOR GFR 0.82 MG/DL (0.55-1.30); GLOMERULAR FILTRATION RATE > 60.0 (>58); GLUCOSE, FASTING 79 MG/DL (70-100); POTASSIUM SERUM 5.2 MEQ/L (3.5-5.1); SODIUM LEVEL 138 MEQ/L (136-145); TOTAL PROTEIN 7.3 GM/DL (6.4-8.2)
[2020-01-02 17:55] LABS: ERYTHROCYTE SEDIMENTATION RATE 11 mm/hr (0-20)
== END ==
LOC: M SFHCADAM 12:15
PROVIDERS: ATTEND Physician Assistant
DX: N39.42 Incontinence without sensory awareness (principal); R53.83 Other fatigue; R29.898 Other symptoms and signs involving the musculoskeletal system; M25.50 Pain in unspecified joint

== ENCOUNTER → 2020-01-16 | Outpatient (CLI) | payer OTHER ==
--- NOTE | 2020-01-16 11:26 | REPVR ---
PROCEDURE INFORMATION: Exam: CT Head Without Contrast Exam date and time: 01/16/2020 9:09 AM Age: 44 years old Clinical indication: Pain; Other: Numbness of face w/ vision changes TECHNIQUE: Imaging protocol: Computed tomography of the head without contrast. Radiation optimization: All CT scans at this facility use at least one of these dose optimization techniques: automated exposure control; mA and/or kV adjustment per patient size (includes targeted exams where dose is matched to clinical indication); or iterative reconstruction. COMPARISON: CT Head without contrast 10/07/2016 5:12 PM FINDINGS: Brain: No acute intracranial hemorrhage, cerebral edema, or midline shift. Cerebral ventricles: No hydrocephalus. Bones/joints: No acute fracture. Paranasal sinuses: There is no acute sinusitis. Mastoid air cells: Visualized mastoid air cells are well aerated. Orbital cavity: Unremarkable as visualized. Soft tissues: Unremarkable. IMPRESSION: No acute intracranial abnormality. Electronically signed by: Christiano Valenzuela On 01/16/2020 11:26:56 AM
== END ==
LOC: M RAD 09:03
PROVIDERS: ATTEND Physician Assistant
DX: R20.0 Anesthesia of skin (principal); H53.9 Unspecified visual disturbance

== ENCOUNTER → 2021-01-28 | Outpatient (CLI) | payer OTHER ==
[~2021-01-28] MED LIST changes: +GABA-282 PO; -GABA-843 PO; +IBUP1TAB5 PO; -IBUP40TA PO
--- NOTE | 2021-01-28 12:16 | REP ---
INDICATION: ABD PAIN, HX GALLSTONES. COMPARISON: None. TECHNIQUE/RADIOTRACER AND DOSE: After the intravenous administration of 6.5 mCi of technetium 99 M Choletec hepatobiliary imaging was performed with gallbladder ejection fraction calculation. FINDINGS: There is symmetric distribution of the radiotracer throughout the hepatocytes. The gallbladder is promptly visualized at 15 minutes. Biliary to bowel transit time is normal. The gallbladder ejection fraction calculation is 0%. IMPRESSION: Abnormal gallbladder ejection fraction calculation as described above. The differential diagnosis includes but is not limited to Chronic acalculous cholecystitis. Cystic duct syndrome. Dyskinesia of the sphincter of Oddi. Biliary dyskinesia. <Electronically signed by Marcell Flanagan > 01/28/21 1020
== END ==
LOC: M RAD 07:39
PROVIDERS: ATTEND Nurse Practitioner Family
DX: R93.2 Abnormal findings on diagnostic imaging of liver and biliary tract (principal); K81.9 Cholecystitis, unspecified; K82.8 Other specified diseases of gallbladder; K83.4 Spasm of sphincter of Oddi; K80.20 Calculus of gallbladder without cholecystitis without obstruction; R10.9 Unspecified abdominal pain
CPT/HCPCS: 78227; A9537

== ENCOUNTER → 2021-06-12 | Outpatient (REF) | payer OTHER, MEDICAID ==
[2021-06-12 12:55] LABS: BASO # 0.1 10^3/uL (0.0-0.2); BASO % 1.3 % (0.0-1.0); EOS # 0.2 10^3/uL (0.0-0.5); EOS % 2.6 % (0.0-3.0); HEMATOCRIT 43.8 % (36.0-47.0); HEMOGLOBIN 13.7 g/dl (12.0-15.5); LYMPH # 1.6 10^3/uL (1.5-5.0); LYMPH % 26.1 % (24.0-44.0); MEAN CORPUSCULAR HEMOGLOBIN 26.9 pg (27.0-33.0); MEAN CORPUSCULAR HGB CONC 31.3 g/dl (32.0-36.5); MEAN CORPUSCULAR VOLUME 85.9 fl (80.0-96.0); MONO # 0.5 10^3/uL (0.0-0.8); MONO % 8.1 % (2.0-8.0); NEUTROPHILS # 3.8 10^3/uL (1.5-8.5); NEUTROPHILS % 61.7 % (36.0-66.0); PLATELET COUNT, AUTOMATED 385 10^3/uL (150-450); WHITE BLOOD COUNT 6.2 10^3/uL (4.0-10.0)
[2021-06-12 13:25] LABS: ALBUMIN 4.3 GM/DL (3.2-5.2); ALT/SGPT 18 U/L (12-78); BILIRUBIN,TOTAL 0.5 MG/DL (0.2-1.0); BLOOD UREA NITROGEN 11 MG/DL (7-18); CALCIUM LEVEL 9.9 MG/DL (8.5-10.1); CARBON DIOXIDE LEVEL 35 MEQ/L (21-32); CHLORIDE LEVEL 104 MEQ/L (98-107); CREATININE FOR GFR 0.91 MG/DL (0.55-1.30); FREE T4 1.12 NG/DL (0.76-1.46); GLOMERULAR FILTRATION RATE > 60.0 (>58); GLUCOSE, FASTING 78 MG/DL (70-100); POTASSIUM SERUM 4.5 MEQ/L (3.5-5.1); SODIUM LEVEL 139 MEQ/L (136-145); TOTAL PROTEIN 7.5 GM/DL (6.4-8.2)
== END ==
LOC: M SFHCADAM 10:10
PROVIDERS: ATTEND Family Medicine
DX: E03.9 Hypothyroidism, unspecified (principal); Z78.9 Other specified health status

== ENCOUNTER → 2021-06-12 | Outpatient (CLI) | payer OTHER, MEDICAID | LOC: M ADAMS 10:14 | PROVIDERS: ATTEND Family Medicine | DX: M25.552 Pain in left hip (principal) ==

== ENCOUNTER → 2022-03-11 | Outpatient (CLI) | payer MEDICAID, OTHER ==
[~2022-03-11] MED LIST changes: +BUPR-71 PO; -BUPR150T5 PO
== END ==
LOC: M RAD 09:53
PROVIDERS: ATTEND Family Medicine
DX: K74.60 Unspecified cirrhosis of liver (principal); K80.20 Calculus of gallbladder without cholecystitis without obstruction; D18.09 Hemangioma of other sites

== ENCOUNTER → 2022-05-14 | Outpatient (CLI) | payer OTHER | LOC: M WHC 09:03 | PROVIDERS: ATTEND Family Medicine | DX: Z12.31 Encounter for screening mammogram for malignant neoplasm of breast (principal); M85.851 Other specified disorders of bone density and structure, right thigh; M85.852 Other specified disorders of bone density and structure, left thigh; R92.8 Other abnormal and inconclusive findings on diagnostic imaging of breast; Z13.820 Encounter for screening for osteoporosis ==

== ENCOUNTER → 2022-06-03 | Outpatient (CLI) | payer OTHER | LOC: M WHC 11:08 | PROVIDERS: ATTEND Family Medicine | DX: R92.2 Inconclusive mammogram (principal) ==

== ENCOUNTER 2022-06-22 11:38 | Emergency (ER) | payer OTHER ==
[~2022-06-22] VITALS: Ht 149.9 cm; Wt 52.2 kg
[2022-06-22] MEDS ORDERED: MIREIUD (11:53)
[2022-06-22] MEDS ORDERED: TRAM50TA2 PO (15:25)
[2022-06-22 15:33] VITALS: BP 105/64
== END 2022-06-22 15:40 | disposition home or self-care (01) ==
LOC: M ED 11:38
DX: S20.212A Contusion of left front wall of thorax, initial encounter (principal); S06.0X0A Concussion without loss of consciousness, initial encounter; W10.9XXA Fall (on) (from) unspecified stairs and steps, initial encounter; Y92.099 Unspecified place in other non-institutional residence as the place of occurrence of the external cause; Z97.5 Presence of (intrauterine) contraceptive device; Z79.899 Other long term (current) drug therapy; Z88.0 Allergy status to penicillin

== ENCOUNTER → 2022-07-30 | Outpatient (CLI) | payer OTHER ==
[~2022-07-30] MED LIST changes: +BARIUM SULFATE 700 MG TABLET (E-Z-DISK) As Ordered ONE; +E-Z-PAQUE 96% w/w SUSP 176GM BTL As Ordered ONE; +MIREIUD; +TRAM50TA2 PO; +VARIBAR NECTAR 40% w/v 240ML SUSP BTL As Ordered ONE; +VARIBAR PUDDING 40% w/v 230ML TUBE As Ordered ONE
== END ==
LOC: M RAD 10:36
PROVIDERS: ATTEND Family Medicine
DX: R13.10 Dysphagia, unspecified (principal)

== ENCOUNTER 2022-11-15 16:07 | Inpatient (IN) | payer MEDICAID, OTHER ==
[~2022-11-15] VITALS: Ht 149.9 cm; Wt 52.9 kg
[~2022-11-15 16:07] MED LIST changes: -BARIUM SULFATE 700 MG TABLET (E-Z-DISK) As Ordered ONE; +DICY-61 PO; -DICY10CA13 PO; -E-Z-PAQUE 96% w/w SUSP 176GM BTL As Ordered ONE; -VARIBAR NECTAR 40% w/v 240ML SUSP BTL As Ordered ONE; -VARIBAR PUDDING 40% w/v 230ML TUBE As Ordered ONE
[2022-11-15] MEDS ORDERED: TRAZ-257 PO (16:46)
[2022-11-15] MEDS ORDERED: NS 1,590 ML in IV 1 EA IV ONE (17:20)
[2022-11-15] MEDS ORDERED: LevoFLOXacin IV 750 MG in IV 1 EA IV ONE (17:20)
[2022-11-15] MEDS ORDERED: ACETAMINOPHEN TAB 650MG DOSE (2X325MG) PO ONE (17:20)
[2022-11-15 17:24] LABS: BASO # 0.1 10^3/uL (0.0-0.2); BASO % 0.3 % (0.0-1.0); EOS % 0.1 % (0.0-3.0); HEMATOCRIT 41.7 % (36.0-47.0); HEMOGLOBIN 13.7 g/dl (12.0-15.5); LYMPH # 0.6 10^3/uL (1.5-5.0); LYMPH % 4.1 % (24.0-44.0); MEAN CORPUSCULAR HEMOGLOBIN 28.1 pg (27.0-33.0); MEAN CORPUSCULAR HGB CONC 32.9 g/dl (32.0-36.5); MEAN CORPUSCULAR VOLUME 85.6 fl (80.0-96.0); MONO # 1.5 10^3/uL (0.0-0.8); MONO % 9.7 % (2.0-8.0); NEUTROPHILS # 12.7 10^3/uL (1.5-8.5); NEUTROPHILS % 85.3 % (36.0-66.0); PLATELET COUNT, AUTOMATED 319 10^3/uL (150-450); RED BLOOD COUNT 4.87 10^6/uL (4.00-5.40); WHITE BLOOD COUNT 14.9 10^3/uL (4.0-10.0)
[2022-11-15 17:28] LABS: URINE PREG TEST NEGATIVE (NEGATIVE)
[2022-11-15 17:55] LABS: ALBUMIN 3.9 G/DL (3.2-5.2); ALKALINE PHOSPHATASE 67 U/L (46-116); ALT/SGPT < 9 U/L (7.0-40); AST/SGOT < 8 U/L (<34); BILIRUBIN,TOTAL 0.9 MG/DL (0.3-1.2); BLOOD UREA NITROGEN 10 MG/DL (9-23); CALCIUM LEVEL 8.8 MG/DL (8.5-10.1); CARBON DIOXIDE LEVEL 30 MMOL/L (20-31); CHLORIDE LEVEL 97 MMOL/L (98-107); CREATININE FOR GFR 0.81 MG/DL (0.55-1.30); GLOMERULAR FILTRATION RATE > 60.0 (>58); GLUCOSE, FASTING 97 MG/DL (60-100); SODIUM LEVEL 133 MMOL/L (136-145); TOTAL PROTEIN 7.3 G/DL (5.7-8.2)
[2022-11-15] MEDS ORDERED: MED REC IN PROGRESS XX SCH (18:30)
[2022-11-15] MEDS ORDERED: TRAZ-252 PO (18:57)
[2022-11-15] MEDS ORDERED: CLON0.5T2 PO (18:57)
[2022-11-15] MEDS ORDERED: LAMO200T3 PO (18:57)
[2022-11-15] MEDS ORDERED: ACET-897 PO (18:59)
[2022-11-15] MEDS ORDERED: LINZESS PO (19:01)
[2022-11-15] MEDS ORDERED: MED REC COMMENT (19:01)
[2022-11-15] MEDS ORDERED: HOME MED LIST COMPLETE! XX SCH (19:05)
[2022-11-15] MEDS ORDERED: NS 1,000 ML IV ONE (19:25)
[2022-11-15] MEDS ORDERED: NOREPINEPHRINE 4MG IN D5 250ML 4 MG in IV 1 EA IV SCH ×2 (20:45)
[2022-11-15] MEDS ORDERED: LR 1,000 ML IV ONE (20:45)
[2022-11-15 22:22] LABS: CK-MB VALUE MASS < 1.0 NG/ML (<3.6)
[2022-11-15 22:24] LABS: CPK CREATINE PHOSPHOKINASE 41 U/L (34-145); MB/CK RELATIVE INDEX 2.43 (< OR =4)
[2022-11-15 22:45] VITALS: BP 88/51; TEMP 98.2; O2SAT 99
[2022-11-15 23:00] VITALS: BP 85/54; TEMP 98.3; O2SAT 99
[2022-11-15] MEDS: ACETAMINOPHEN TAB 650MG DOSE (2X325MG) PO PRN (23:02)
[2022-11-15] MEDS: MEROPENEM INJ 1 GM in IV 1 EA IV SCH (23:03)
[2022-11-15 23:15] VITALS: O2SAT 98
[2022-11-15 23:16] VITALS: BP 144/85; O2SAT 97
[2022-11-15 23:30] VITALS: BP 118/55; O2SAT 99
[2022-11-15 23:45] VITALS: BP 100/58; O2SAT 99
[2022-11-16] VITALS (34 sets, daily range): BP systolic 81–110; BP diastolic 48–73; TEMP 97.9–98.8; O2SAT 85–98
[2022-11-16] MEDS ORDERED: LR 1,000 ML IV ONE ×3 (00:35→10:00)
[2022-11-16] MEDS ORDERED: DULoxetine 30MG CAPSULE (CYMBALTA) PO SCH (00:35)
[2022-11-16] MEDS ORDERED: GLUCOSE 4GM CHEW TABLET PO PRN (00:40)
[2022-11-16] MEDS ORDERED: GLUCAGON INJ 1MG VIAL SC PRN (00:40)
[2022-11-16] MEDS ORDERED: DEXTROSE 50% 50ML SYRINGE IV PRN (00:40)
[2022-11-16] MEDS: GABAPENTIN 300 MG CAP PO SCH ×4 (01:26→22:37)
[2022-11-16] MEDS: traZODone 50 MG TAB PO SCH ×2 (01:28→22:37)
[2022-11-16 04:38] LABS: HEMATOCRIT 34.7 % (36.0-47.0); MEAN CORPUSCULAR HEMOGLOBIN 27.8 pg (27.0-33.0); MEAN CORPUSCULAR HGB CONC 32.3 g/dl (32.0-36.5); MEAN CORPUSCULAR VOLUME 86.1 fl (80.0-96.0); PLATELET COUNT, AUTOMATED 246 10^3/uL (150-450); RED BLOOD COUNT 4.03 10^6/uL (4.00-5.40); WHITE BLOOD COUNT 14.1 10^3/uL (4.0-10.0)
[2022-11-16 04:56] LABS: HEMOGLOBIN 11.2 g/dl (12.0-15.5)
[2022-11-16 05:16] LABS: ALBUMIN 2.5 G/DL (3.2-5.2); ALKALINE PHOSPHATASE 48 U/L (46-116); ALT/SGPT < 9 U/L (7.0-40); AST/SGOT < 8 U/L (<34); BILIRUBIN,TOTAL 0.6 MG/DL (0.3-1.2); BLOOD UREA NITROGEN 6 MG/DL (9-23); CALCIUM LEVEL 7.5 MG/DL (8.5-10.1); CARBON DIOXIDE LEVEL 27 MMOL/L (20-31); CHLORIDE LEVEL 109 MMOL/L (98-107); CREATININE FOR GFR 0.71 MG/DL (0.55-1.30); GLOMERULAR FILTRATION RATE > 60.0 (>58); GLUCOSE, FASTING 103 MG/DL (60-100); POTASSIUM SERUM 3.6 MMOL/L (3.5-5.1); SODIUM LEVEL 144 MMOL/L (136-145)
[2022-11-16] MEDS: LEVOTHYROXINE 88MCG TABLET (0.088 MG) PO SCH (05:37)
[2022-11-16] MEDS: MEROPENEM INJ 1 GM in IV 1 EA IV SCH (05:37)
[2022-11-16] MEDS: INSULIN LISPRO (NovoLOG) PER UNIT SC SCH ×4 (07:30→22:30)
[2022-11-16] MEDS ORDERED: NS 1,000 ML IV ONE (08:25)
[2022-11-16] MEDS: lamoTRIgine 100MG TAB PO SCH (08:43)
[2022-11-16] MEDS: DULoxetine 30MG CAPSULE (CYMBALTA) PO SCH (08:44)
[2022-11-16] MEDS: ENOXAPARIN 40MG/0.4ML SYRINGE (J1650 PER 10MG) SC SCH (08:45)
[2022-11-16] MEDS: MIDODRINE 5 MG TAB PO SCH ×3 (09:14→16:27)
[2022-11-16] MEDS: ACETAMINOPHEN TAB 650MG DOSE (2X325MG) PO PRN ×2 (09:29→18:10)
[2022-11-16] MEDS ORDERED: cefTRIAXone SOD 2 GM in D5W MINI-BAG PLUS 50 ML IV SCH (14:00)
[2022-11-16] MEDS ORDERED: PILL CUTTER 1 EACH XX PRN (22:00)
[2022-11-17] VITALS (7 sets, daily range): BP systolic 95–113; BP diastolic 59–77; TEMP 98.2–100; O2SAT 97–99
[2022-11-17] MEDS: LEVOTHYROXINE 88MCG TABLET (0.088 MG) PO SCH (05:48)
[2022-11-17 08:01] LABS: BASO % 0.3 % (0.0-1.0); EOS # 0.1 10^3/uL (0.0-0.5); HEMATOCRIT 38.5 % (36.0-47.0); HEMOGLOBIN 12.4 g/dl (12.0-15.5); LYMPH # 1.1 10^3/uL (1.5-5.0); LYMPH % 9.4 % (24.0-44.0); MEAN CORPUSCULAR HEMOGLOBIN 27.3 pg (27.0-33.0); MEAN CORPUSCULAR HGB CONC 32.2 g/dl (32.0-36.5); MEAN CORPUSCULAR VOLUME 84.8 fl (80.0-96.0); MONO # 1.1 10^3/uL (0.0-0.8); MONO % 9.2 % (2.0-8.0); NEUTROPHILS # 9.2 10^3/uL (1.5-8.5); NEUTROPHILS % 79.8 % (36.0-66.0); PLATELET COUNT, AUTOMATED 315 10^3/uL (150-450); RED BLOOD COUNT 4.54 10^6/uL (4.00-5.40); WHITE BLOOD COUNT 11.6 10^3/uL (4.0-10.0)
[2022-11-17 08:29] LABS: ERYTHROCYTE SEDIMENTATION RATE 54 mm/hr (0-20)
[2022-11-17 08:42] LABS: PROCALCITONIN 0.92 ng/ml
[2022-11-17] MEDS: INSULIN LISPRO (NovoLOG) PER UNIT SC SCH ×4 (08:45→21:00)
[2022-11-17 08:46] LABS: ALBUMIN 2.7 G/DL (3.2-5.2); ALKALINE PHOSPHATASE 68 U/L (46-116); ALT/SGPT 26 U/L (7.0-40); AST/SGOT 21 U/L (<34); BILIRUBIN,TOTAL 0.3 MG/DL (0.3-1.2); BLOOD UREA NITROGEN < 5 MG/DL (9-23); CALCIUM LEVEL 8.8 MG/DL (8.5-10.1); CARBON DIOXIDE LEVEL 29 MMOL/L (20-31); CHLORIDE LEVEL 105 MMOL/L (98-107); CREATININE FOR GFR 0.77 MG/DL (0.55-1.30); GLOMERULAR FILTRATION RATE > 60.0 (>58); GLUCOSE, FASTING 89 MG/DL (60-100); POTASSIUM SERUM 4.2 MMOL/L (3.5-5.1); SODIUM LEVEL 141 MMOL/L (136-145); TOTAL PROTEIN 5.5 G/DL (5.7-8.2)
[2022-11-17] MEDS: GABAPENTIN 300 MG CAP PO SCH ×3 (08:56→21:07)
[2022-11-17] MEDS: lamoTRIgine 100MG TAB PO SCH (08:57)
[2022-11-17] MEDS: DULoxetine 30MG CAPSULE (CYMBALTA) PO SCH (08:57)
[2022-11-17] MEDS: ENOXAPARIN 40MG/0.4ML SYRINGE (J1650 PER 10MG) SC SCH (08:58)
[2022-11-17] MEDS: NS 1,000 ML IV SCH ×2 (09:14→11:12)
[2022-11-17] MEDS: LevoFLOXacin 750 MG TABLET PO SCH (11:12)
[2022-11-17] MEDS: traZODone 50 MG TAB PO SCH (21:08)
[2022-11-18] VITALS: BP 100/68; TEMP 98.1; O2SAT 97
[2022-11-18 04:00] VITALS: BP 104/70; TEMP 99.3; O2SAT 97
[2022-11-18] MEDS: LEVOTHYROXINE 88MCG TABLET (0.088 MG) PO SCH (07:00)
[2022-11-18] MEDS: LevoFLOXacin 750 MG TABLET PO SCH (07:00)
[2022-11-18] MEDS ORDERED: LEVO1TAB40 PO (07:50)
[2022-11-18] MEDS ORDERED: BACI1CAP PO (07:50)
[2022-11-18] MEDS: INSULIN LISPRO (NovoLOG) PER UNIT SC SCH (07:55)
[2022-11-18 08:11] LABS: BASO % 0.4 % (0.0-1.0); EOS # 0.1 10^3/uL (0.0-0.5); EOS % 1.2 % (0.0-3.0); HEMATOCRIT 36.5 % (36.0-47.0); HEMOGLOBIN 11.8 g/dl (12.0-15.5); LYMPH % 12.3 % (24.0-44.0); MEAN CORPUSCULAR HEMOGLOBIN 27.8 pg (27.0-33.0); MEAN CORPUSCULAR HGB CONC 32.3 g/dl (32.0-36.5); MEAN CORPUSCULAR VOLUME 85.9 fl (80.0-96.0); MONO # 0.9 10^3/uL (0.0-0.8); MONO % 10.5 % (2.0-8.0); NEUTROPHILS # 6.1 10^3/uL (1.5-8.5); NEUTROPHILS % 75.1 % (36.0-66.0); PLATELET COUNT, AUTOMATED 307 10^3/uL (150-450); RED BLOOD COUNT 4.25 10^6/uL (4.00-5.40); WHITE BLOOD COUNT 8.1 10^3/uL (4.0-10.0)
[2022-11-18 08:16] LABS: ERYTHROCYTE SEDIMENTATION RATE 65 mm/hr (0-20)
[2022-11-18] MEDS: GABAPENTIN 300 MG CAP PO SCH (08:24)
[2022-11-18] MEDS: lamoTRIgine 100MG TAB PO SCH (08:24)
[2022-11-18] MEDS: DULoxetine 30MG CAPSULE (CYMBALTA) PO SCH (08:24)
[2022-11-18] MEDS: ENOXAPARIN 40MG/0.4ML SYRINGE (J1650 PER 10MG) SC SCH (08:25)
[2022-11-18 08:30] VITALS: BP 110/70; TEMP 98.9; O2SAT 99
[2022-11-18 08:54] LABS: BLOOD UREA NITROGEN < 5 MG/DL (9-23); CALCIUM LEVEL 8.4 MG/DL (8.5-10.1); CARBON DIOXIDE LEVEL 27 MMOL/L (20-31); CHLORIDE LEVEL 107 MMOL/L (98-107); CREATININE FOR GFR 0.73 MG/DL (0.55-1.30); GLOMERULAR FILTRATION RATE > 60.0 (>58); GLUCOSE, FASTING 94 MG/DL (60-100); SODIUM LEVEL 141 MMOL/L (136-145)
== END 2022-11-18 12:25 | disposition home or self-care (01) | DRG 720 ==
LOC: M ED 16:07 → M ED INP 20:47 → M ICU 22:18 → M PED 11-16 20:24
PROVIDERS: ADMIT Family Medicine; ATTEND Family Medicine
DX: A41.9 Sepsis, unspecified organism (principal); R65.21 Severe sepsis with septic shock; N10 Acute pyelonephritis; N13.30 Unspecified hydronephrosis; B96.20 Unspecified Escherichia coli [E. coli] as the cause of diseases classified elsewhere; E11.9 Type 2 diabetes mellitus without complications; E03.9 Hypothyroidism, unspecified; Z79.890 Hormone replacement therapy; Z79.84 Long term (current) use of oral hypoglycemic drugs; Z79.899 Other long term (current) drug therapy; Z88.0 Allergy status to penicillin; Z20.822 Contact with and (suspected) exposure to COVID-19

== ENCOUNTER → 2022-12-01 | Outpatient (REF) | payer OTHER, MEDICAID ==
[~2022-12-01] MED LIST changes: +ACET-897 PO; +BACI1CAP PO; +CLON0.5T2 PO; +LAMO200T3 PO; +LEVO1TAB40 PO; +LINZESS PO; +MED REC COMMENT; +TRAZ-252 PO; +TRAZ-257 PO
[2022-12-01 13:32] LABS: APPEARANCE, URINE CLEAR (CLEAR); BACTERIA, URINE AUTO NEGATIVE (NEGATIVE); BILIRUBIN, URINE AUTO NEGATIVE (NEGATIVE); BLOOD, URINE BLOOD NEGATIVE (NEGATIVE); COLOR, URINE YELLOW (YELLOW); GLUCOSE, URINE (UA) AUTO NEGATIVE (NEGATIVE); KETONE, URINE AUTO NEGATIVE (NEGATIVE); LEUKOCYTE ESTERASE, URINE AUTO NEGATIVE (NEGATIVE); NITRITE, URINE AUTO NEGATIVE (NEGATIVE); PROTEIN, URINE AUTO NEGATIVE (NEGATIVE); RBC, URINE AUTO 0 /HPF (0-3); SPECIFIC GRAVITY URINE AUTO 1.009 (1.002-1.035); SQUAMOUS EPITHELIAL CELL UR AU 1 /HPF (0-6); UROBILINOGEN, URINE AUTO 0.2 mg/dL (0.0-2.0); WBC, URINE AUTO 1 /HPF (0-3)
== END ==
LOC: M SMT 12:58
PROVIDERS: ATTEND Physician Assistant
DX: N12 Tubulo-interstitial nephritis, not specified as acute or chronic (principal)

== ENCOUNTER → 2023-08-02 | Outpatient (CLI) | payer OTHER ==
[~2023-08-02] MED LIST changes: +BUPR-597 PO; -BUPR300T92 PO; +FERR32TA PO; +VITA1CAP25 PO
== END ==
LOC: M PLAIMG 11:52
PROVIDERS: ATTEND Nurse Practitioner Family
DX: R51.9 Headache, unspecified (principal); R47.9 Unspecified speech disturbances; R41.9 Unspecified symptoms and signs involving cognitive functions and awareness

== ENCOUNTER 2023-08-03 20:10 | Emergency (ER) | payer OTHER ==
[~2023-08-03] VITALS: Ht 149.9 cm; Wt 53.7 kg
[~2023-08-03 20:10] MED LIST changes: -FERR32TA PO; -VITA1CAP25 PO
[2023-08-03 20:11] VITALS: BP 117/75; TEMP 98.3; O2SAT 100
[2023-08-03] MEDS ORDERED: FERR32TA PO (20:35)
[2023-08-03] MEDS ORDERED: VITA1CAP25 PO (20:35)
[2023-08-03 21:18] LABS: BASO # 0.1 10^3/uL (0.0-0.2); BASO % 1.1 % (0.0-1.0); EOS # 0.2 10^3/uL (0.0-0.5); EOS % 3.5 % (0.0-3.0); HEMATOCRIT 33.5 % (36.0-47.0); LYMPH # 2.3 10^3/uL (1.5-5.0); MEAN CORPUSCULAR HEMOGLOBIN 26.8 pg (27.0-33.0); MEAN CORPUSCULAR HGB CONC 32.8 g/dl (32.0-36.5); MEAN CORPUSCULAR VOLUME 81.5 fl (80.0-96.0); MONO # 0.5 10^3/uL (0.0-0.8); MONO % 8.1 % (2.0-8.0); NEUTROPHILS # 3.2 10^3/uL (1.5-8.5); NEUTROPHILS % 51.1 % (36.0-66.0); PLATELET COUNT, AUTOMATED 417 10^3/uL (150-450); RED BLOOD COUNT 4.11 10^6/uL (4.00-5.40); WHITE BLOOD COUNT 6.3 10^3/uL (4.0-10.0)
[2023-08-03 21:51] LABS: ALBUMIN 3.4 G/DL (3.2-5.2); ALKALINE PHOSPHATASE 49 U/L (46-116); ALT/SGPT 15 U/L (7.0-40); AST/SGOT 10 U/L (<34); BILIRUBIN,TOTAL 0.2 MG/DL (0.3-1.2); BLOOD UREA NITROGEN 15 MG/DL (9-23); CALCIUM LEVEL 8.9 MG/DL (8.5-10.1); CARBON DIOXIDE LEVEL 33 MMOL/L (20-31); CHLORIDE LEVEL 104 MMOL/L (98-107); CREATININE FOR GFR 0.85 MG/DL (0.55-1.30); GLOMERULAR FILTRATION RATE > 60.0 (>58); GLUCOSE, FASTING 91 MG/DL (60-100); POTASSIUM SERUM 4.4 MMOL/L (3.5-5.1); SODIUM LEVEL 140 MMOL/L (136-145); TOTAL PROTEIN 6.4 G/DL (5.7-8.2)
== END 2023-08-03 23:09 | disposition left against medical advice (07) ==
LOC: M ED 20:10
DX: Z53.21 Procedure and treatment not carried out due to patient leaving prior to being seen by health care provider (principal)

== ENCOUNTER 2024-02-04 15:44 | Emergency (ER) | payer OTHER, MEDICAID ==
[~2024-02-04] VITALS: Ht 149.9 cm; Wt 54.4 kg
[~2024-02-04 15:44] MED LIST changes: +FERR32TA PO; +GABA-1172 PO; -GABA-282 PO; +VITA1CAP25 PO
[2024-02-04 15:47] VITALS: TEMP 98
[2024-02-04] MEDS: LIDOCAINE 5% (LIDODERM) PATCH TD ONE (17:33)
[2024-02-04] MEDS: KETOROLAC 60MG 2ML VIAL IM ONE (17:34)
[2024-02-04] MEDS: methocarbamoL 750 MG TAB PO ONE (17:34)
[2024-02-04 18:00] VITALS: BP 104/60
[2024-02-04] MEDS: NORCO, ANEXSIA 5/325MG TABLET (HYDROcodone/ACETAMINOPHEN) PO ONE (19:25)
[2024-02-04] MEDS: ONDANSETRON 4MG ORAL DISINTEGRATING TAB PO ONE (19:26)
[2024-02-04 20:25] VITALS: O2SAT 95
[2024-02-04] MEDS ORDERED: METH-1164 PO (20:31)
[2024-02-04] MEDS ORDERED: MEDR4PAK PO (20:31)
[2024-02-04] MEDS ORDERED: HYDR-3713 PO (20:31)
[2024-02-04] MEDS ORDERED: ONDA-282 PO (20:31)
[2024-02-04] MEDS: NORCO 5/325MG TABLET (HOME DOSE PACK) PO ONE (20:41)
== END 2024-02-04 21:15 | disposition home or self-care (01) ==
LOC: M ED 15:44
DX: M54.6 Pain in thoracic spine (principal); M54.50 Low back pain, unspecified; W07.XXXD Fall from chair, subsequent encounter; Y92.9 Unspecified place or not applicable; Y93.9 Activity, unspecified; Y99.9 Unspecified external cause status; M85.88 Other specified disorders of bone density and structure, other site; K80.20 Calculus of gallbladder without cholecystitis without obstruction; E03.9 Hypothyroidism, unspecified; M41.9 Scoliosis, unspecified; Z79.899 Other long term (current) drug therapy; Z88.0 Allergy status to penicillin
CPT/HCPCS: 72110; 72128; 96372; 99283; J1885

== ENCOUNTER 2024-07-11 18:28 | Emergency (ER) | payer OTHER ==
[~2024-07-11 18:28] MED LIST changes: +HYDR-3713 PO; +MEDR4PAK PO; +METH-1164 PO; +ONDA-282 PO
[2024-07-11 18:53] VITALS: TEMP 99.5
[2024-07-11 19:18] LABS: BASO # 0.1 10^3/uL (0.0-0.2); BASO % 0.7 % (0.0-1.0); EOS # 0.2 10^3/uL (0.0-0.5); HEMATOCRIT 33.6 % (36.0-47.0); HEMOGLOBIN 10.6 g/dl (12.0-15.5); LYMPH % 17.5 % (24.0-44.0); MEAN CORPUSCULAR HEMOGLOBIN 24.7 pg (27.0-33.0); MEAN CORPUSCULAR HGB CONC 31.5 g/dl (32.0-36.5); MEAN CORPUSCULAR VOLUME 78.1 fl (80.0-96.0); MONO # 0.8 10^3/uL (0.0-0.8); NEUTROPHILS # 8.1 10^3/uL (1.5-8.5); NEUTROPHILS % 71.9 % (36.0-66.0); PLATELET COUNT, AUTOMATED 472 10^3/uL (150-450); WHITE BLOOD COUNT 11.2 10^3/uL (4.0-10.0)
[2024-07-11 19:30] LABS: PROTHROMBIN TIME 13.5 SECONDS (12.5-14.5)
[2024-07-11 19:46] LABS: LIPASE 40 U/L (12-53)
[2024-07-11 19:48] LABS: CPK CREATINE PHOSPHOKINASE 27 U/L (34-145)
[2024-07-11 20:07] LABS: ALBUMIN 2.1 G/DL (3.2-5.2); ALKALINE PHOSPHATASE 47 U/L (35-104); ALT/SGPT 13 U/L (7.0-40); AST/SGOT 10 U/L (<34); BILIRUBIN,DIRECT < 0.1 MG/DL (<0.4); BILIRUBIN,TOTAL < 0.2 MG/DL (0.3-1.2); BLOOD UREA NITROGEN 7 MG/DL (9-23); CALCIUM LEVEL 5.8 MG/DL (8.5-10.1); CARBON DIOXIDE LEVEL 20 MMOL/L (20-31); CHLORIDE LEVEL 115 MMOL/L (98-107); CK-MB VALUE MASS < 1.0 NG/ML (<3.6); GLOMERULAR FILTRATION RATE > 90.0 (>51); GLUCOSE, FASTING 82 MG/DL (60-100); SODIUM LEVEL 144 MMOL/L (136-145); TOTAL PROTEIN 4.6 G/DL (5.7-8.2)
[2024-07-11] MEDS ORDERED: ISOVUE-370 76% 100ML VIAL As Ordered ONE (20:37)
[2024-07-11] MEDS: KETOROLAC 30 MG/ML 1ML VIAL IV ONE (21:01)
[2024-07-11] MEDS: POTASSIUM CHLORIDE 10MEQ SR TABLET PO ONE (21:02)
[2024-07-11] MEDS: METHOCARBAMOL 1,000 MG/10 ML VIAL IV ONE (22:43)
[2024-07-12] MEDS ORDERED: KETO10TAB PO (00:10)
[2024-07-12] MEDS ORDERED: METH-1165 PO (00:10)
[2024-07-12 00:15] VITALS: BP 104/59; O2SAT 97
== END 2024-07-12 00:25 | disposition home or self-care (01) ==
LOC: M ED 18:28 → EDBD 18:28 → M ED 07-12 00:25
DX: R07.89 Other chest pain (principal); R14.0 Abdominal distension (gaseous); K21.9 Gastro-esophageal reflux disease without esophagitis; F41.1 Generalized anxiety disorder; E03.9 Hypothyroidism, unspecified; K74.60 Unspecified cirrhosis of liver; F12.10 Cannabis abuse, uncomplicated; Z79.899 Other long term (current) drug therapy; Z88.0 Allergy status to penicillin; Z88.5 Allergy status to narcotic agent
CPT/HCPCS: 71045; 71275; 80048; 80076; 82330; 82550; 82553; 83690; 84484; 85025; 85610; 93005; 93041; 94760; 96374; 96375; 99285; J1885; J2800; Q9967

== ENCOUNTER 2025-01-22 00:10 | Emergency (ER) | payer OTHER ==
[~2025-01-22 00:10] MED LIST changes: -BUPR-597 PO; +BUPR-766 PO; +KETO10TAB PO; +METH-1165 PO
[2025-01-22] MEDS ORDERED: REGL10TA6 PO (13:12)
[2025-01-22] MEDS ORDERED: KETO-204 PO (13:17)
== END 2025-01-22 00:37 | disposition left against medical advice (07) ==
LOC: M ED 00:10
DX: Z53.21 Procedure and treatment not carried out due to patient leaving prior to being seen by health care provider (principal)

== ENCOUNTER 2025-01-22 09:30 | Emergency (ER) | payer OTHER ==
[~2025-01-22] VITALS: Ht 149.9 cm; Wt 54.4 kg
[2025-01-22] MEDS ORDERED: KETOROLAC 30 MG/ML 1 ML VIAL IM ONE (10:55)
[2025-01-22] MEDS: NS (Normal Saline) 0.9% 1,000 ML IV ONE (11:09)
[2025-01-22] MEDS: KETOROLAC 30 MG/ML 1 ML VIAL IV ONE (11:09)
[2025-01-22 12:52] VITALS: BP 112/66; TEMP 96.9; O2SAT 99
[2025-01-22] MEDS ORDERED: REGL10TA6 PO (13:12)
[2025-01-22] MEDS ORDERED: KETO-204 PO (13:17)
== END 2025-01-22 13:20 | disposition home or self-care (01) ==
LOC: M ED 09:30
DX: R51.9 Headache, unspecified (principal); E03.9 Hypothyroidism, unspecified; Z79.84 Long term (current) use of oral hypoglycemic drugs; Z79.899 Other long term (current) drug therapy; Z88.0 Allergy status to penicillin; Z88.5 Allergy status to narcotic agent
CPT/HCPCS: 70450; 96361; 96374; 96375; 99283; J1885; J2765

== ENCOUNTER → 2025-02-14 | Outpatient (CLI) | payer OTHER ==
[~2025-02-14] MED LIST changes: +KETO-204 PO; +REGL10TA6 PO
== END ==
LOC: M PLAIMG 11:45
PROVIDERS: ATTEND Family Medicine
DX: G44.52 New daily persistent headache (NDPH) (principal); R51.0 Headache with orthostatic component, not elsewhere classified; M47.812 Spondylosis without myelopathy or radiculopathy, cervical region

== ENCOUNTER → 2025-02-14 | Outpatient (CLI) | payer OTHER ==
[~2025-02-14] MED LIST changes: +PROHANCE 279.3MG/ML 5ML VIAL ONE
== END ==
LOC: M PLAIMG 11:37
PROVIDERS: ATTEND Family Medicine
DX: G44.52 New daily persistent headache (NDPH) (principal)

== ENCOUNTER → 2025-03-19 | Outpatient (CLI) | payer OTHER ==
[~2025-03-19] MED LIST changes: -PROHANCE 279.3MG/ML 5ML VIAL ONE
== END ==
LOC: M RAD 07:12
PROVIDERS: ATTEND Family Medicine
DX: Z53.9 Procedure and treatment not carried out, unspecified reason (principal)

== ENCOUNTER → 2025-03-19 | Outpatient (CLI) | payer OTHER | LOC: M RAD 07:23 | PROVIDERS: ATTEND Family Medicine | DX: K74.60 Unspecified cirrhosis of liver (principal); K80.20 Calculus of gallbladder without cholecystitis without obstruction ==